=== PATIENT | female | born 1975 | race American Indian/Alaskan Native ===

== ENCOUNTER 2016-12-31 09:23 | Inpatient (IN) | payer MEDICAID ==
[2016-12-31 09:59] VITALS: BP 113/69
[2016-12-31 10:36] LABS: Hematocrit 27.1 % (30.3-42.9); Hemoglobin 8.4 gm/dl (10.1-14.3); Mean Corpuscular HGB Conc 31 % (30-34); Platelet Count 263 K/mm3 (140-440); Red Blood Count 4.38 M/mm3 (3.65-5.03); Red Cell Distribution Width 19.6 % (13.2-15.2)
[2016-12-31 10:38] LABS: Mean Corpuscular Hemoglobin 19 pg (28-32); Mean Corpuscular Volume 62 fl (79-97)
[2016-12-31 11:05] LABS: Anion Gap 15 mmol/L; BUN/Creatinine Ratio 12; Blood Urea Nitrogen 6 mg/dL (7-17); Calcium 9.1 mg/dL (8.4-10.2); Carbon Dioxide 26 mmol/L (22-30); Chloride 101.4 mmol/L (98-107); Glucose 84 mg/dL (65-100); Potassium 3.8 mmol/L (3.6-5.0); Sodium 139 mmol/L (137-145)
[2016-12-31 12:01] LABS: Anisocytosis 1+; Blastocytes % (Manual) 0 %; Hypochromasia 3+; Microcytosis 2+
[2016-12-31 12:02] LABS: Diff Status Complete; Large Platelets 1+; Platelet Estimate Cons; Poikilocytosis 1+; Target Cells 1+
[2016-12-31] MEDS ORDERED: TYLENOL PO ONE (12:53)
--- NOTE | 2016-12-31 13:59 | Emergency Department Report ---
ED Chest Pain HPI - General Chief Complaint: Chest Pain Stated Complaint: CHEST PAIN, HEAD HURTS Time Seen by Provider: 12/31/16 13:56 Source: patient Mode of arrival: Ambulatory Limitations: No Limitations - History of Present Illness Initial Comments: The patient states over the last 2-3 days she's had intermittent chest pain. She states that last for about 2 hours and it feels most like pressure. She states that she still has chest pain at this time which has persisted all morning. It is not pleuritic and does not radiate. It is mild in intensity right during my encounter. She denies any associated symptoms. She's had occasional nonproductive cough. Patient is somewhat poor and difficult historian. She states that she had an admission to a hospital in [facility]. She can't tell me when that might have been. She states that she was diagnosed with a "mild blockage". She cannot describe a cardiac catheterization but apparently was treated medically. She states she has a history of anemia but does not take iron replacement despite heavy periods. She states that her mother at 61 from a "massive heart attack". She is a former smoker. Complaint: chest pain -: days(s) Onset: during rest Pain Location: substernal Pain Radiation: none Severity: mild, moderate Severity scale (0 -10): 5 Quality: pressure Consistency: intermittent Improves With: nothing Worsens With: nothing re: denies: nausea, vomting, diaphoresis, dyspnea, sense of impending doom Other Symptoms: denies: cough, fever, syncope Treatments Prior to Arrival: none Aspirin use within the Past 7 Days: (0) No - Related Data Home Medications Medication Instructions Recorded Confirmed Last Taken No Known Home Medications [No 12/31/16 12/31/16 Unknown Reported Home Medications] Allergies Allergy/AdvReac Type Severity Reaction Status Date / Time No Known Allergies Allergy Unverified 12/31/16 09:53 Heart Score - HEART Score History: Slightly suspicious EKG: Significant ST-depression Age: < 45 Risk factors: 1-2 risk factors Troponin: < normal limit HEART Score: 3 ED Review of Systems ROS: Stated complaint: CHEST PAIN, HEAD HURTS Other details as noted in HPI Constitutional: denies: chills, fever Eyes: denies: eye pain, eye discharge, vision change ENT: denies: ear pain, throat pain Respiratory: denies: cough, shortness of breath, wheezing Cardiovascular: chest pain. denies: palpitations Endocrine: no symptoms reported Gastrointestinal: denies: abdominal pain, nausea, diarrhea Genitourinary: denies: urgency, dysuria, discharge Musculoskeletal: denies: back pain, joint swelling, arthralgia Skin: denies: rash, lesions Neurological: denies: headache, weakness, paresthesias Psychiatric: denies: anxiety, depression Hematological/Lymphatic: denies: easy bleeding, easy bruising ED Past Medical Hx - Past Medical History Previous Medical History?: Yes Additional medical history: vaginal delivery x 3. Anemia - Surgical History Past Surgical History?: Yes Hx Appendectomy: Yes Additional Surgical History: Tubaligation, x 2, Hx of tubal and loose right fallopian tube - Social History Smoking Status: Former Smoker Substance Use Type: Non Opiate Pain - Medications Home Medications: Home Medications Medication Instructions Recorded Confirmed Last Taken Type No Known Home Medications [No 12/31/16 12/31/16 Unknown History Reported Home Medications] ED Physical Exam - General Limitations: No Limitations General appearance: alert, in no apparent distress - Head Head exam: Present: atraumatic, normocephalic - Eye Eye exam: Present: normal appearance. Absent: scleral icterus - ENT ENT exam: Present: mucous membranes moist - Neck Neck exam: Present: normal inspection. Absent: tenderness, meningismus - Respiratory Respiratory exam: Present: normal lung sounds bilaterally. Absent: respiratory distress - Cardiovascular Cardiovascular Exam: Present: regular rate, normal rhythm. Absent: systolic murmur, diastolic murmur, rubs, gallop - GI/Abdominal GI/Abdominal exam: Present: soft, normal bowel sounds. Absent: distended, tenderness, guarding, rebound, rigid - Extremities Exam Extremities exam: Present: normal inspection, full ROM, normal capillary refill. Absent: tenderness, pedal edema, joint swelling, calf tenderness - Back Exam Back exam: Present: normal inspection - Neurological Exam Neurological exam: Present: alert, oriented X3, CN II-XII intact. Absent: motor sensory deficit - Psychiatric Psychiatric exam: Present: normal affect, anxious - Skin Skin exam: Present: warm, dry, intact, normal color. Absent: rash ED Course Vital Signs 12/31/16 09:54 Temperature 99.4 F Pulse Rate 81 Respiratory 18 Rate Blood Pressure 113/69 O2 Sat by Pulse 100 Oximetry - Reevaluation(s) Reevaluation #1: Patient referred to Dr. Decker for further care and evaluation. 12/31/16 14:10 ULISES score - Ulises Score Age > 65: (0) No Aspirin use within the Past 7 Days: (0) No 3 or more CAD Risk Factors: (0) No 2 or more Angina events in past 24 hrs: (0) No Known CAD with more than 50% Stenosis: (0) No Elevated Cardiac Markers: (0) No ST Deviation Greater than 0.5mm: (1) Yes ULISES Score: 1 ED Medical Decision Making - Lab Data Result diagrams: 12/31/16 10:10 12/31/16 10:10 Laboratory Results - last 24 hr 12/31/16 12/31/16 10:10 10:10 WBC 3.0 L RBC 4.38 Hgb 8.4 L Hct 27.1 L MCV 62 L MCH 19 L MCHC 31 RDW 19.6 H Plt Count 263 Add Manual Diff Complete Total Counted 100 Seg Neuts % (Manual) 57.0 Band Neutrophils % 0 Lymphocytes % (Manual) 31.0 Reactive Lymphs % (Man) 1.0 Monocytes % (Manual) 6.0 Eosinophils % (Manual) 2.0 Basophils % (Manual) 3.0 H Metamyelocytes % 0 Myelocytes % 0 Promyelocytes % 0 Blast Cells % 0 Nucleated RBC % Not Reportable Seg Neutrophils # Man 1.7 L Band Neutrophils # 0.0 Lymphocytes # (Manual) 0.9 L Abs React Lymphs (Man) 0.0 Monocytes # (Manual) 0.2 Eosinophils # (Manual) 0.1 Basophils # (Manual) 0.1 Metamyelocytes # 0.0 Myelocytes # 0.0 Promyelocytes # 0.0 Blast Cells # 0.0 WBC Morphology Not Reportable Hypersegmented Neuts Not Reportable Hyposegmented Neuts Not Reportable Hypogranular Neuts Not Reportable Smudge Cells Not Reportable Toxic Granulation Not Reportable Toxic Vacuolation Not Reportable Dohle Bodies Not Reportable Pelger-Huet Anomaly Not Reportable Marita Rods Not Reportable Platelet Estimate Cons Clumped Platelets Not Reportable Plt Clumps, EDTA Not Reportable Large Platelets 1+ Giant Platelets Not Reportable Platelet Satelliting Not Reportable Plt Morphology Comment Not Reportable RBC Morphology Not Reportable Dimorphic RBCs Not Reportable Polychromasia Not Reportable Hypochromasia 3+ Poikilocytosis 1+ Anisocytosis 1+ Microcytosis 2+ Macrocytosis Not Reportable Spherocytes Not Reportable Pappenheimer Bodies Not Reportable Sickle Cells Not Reportable Target Cells 1+ Tear Drop Cells Not Reportable Ovalocytes Not Reportable Helmet Cells Not Reportable Stiles[place] Bodies Not Reportable [place] Rings Not Reportable Danisha Cells Not Reportable Bite Cells Not Reportable Crenated Cell Not Reportable Elliptocytes Not Reportable Acanthocytes (Spur) Not Reportable Rouleaux Not Reportable Hemoglobin C Crystals Not Reportable Schistocytes Not Reportable Malaria parasites Not Reportable Tony Bodies Not Reportable Hem Pathologist Commnt No Sodium 139 Potassium 3.8 Chloride 101.4 Carbon Dioxide 26 Anion Gap 15 BUN 6 L Creatinine 0.5 L Estimated GFR > 60 BUN/Creatinine Ratio 12 Glucose 84 Calcium 9.1 Troponin T < 0.010 - EKG Data -: EKG Interpreted by Nd EKG shows normal: sinus rhythm, axis, intervals - EKG Data Interpretation: other (EKG reveals ST depression in the inferolateral leads of greater than or equal to 0.5 mm there is one PVC. There is an RSR in V2.) Critical care attestation.: If time is entered above; I have spent that time in minutes in the direct care of this critically ill patient, excluding procedure time. ED Disposition Clinical Impression: Chest pain Qualifiers: Chest pain type: unspecified Qualified Code(s): R07.9 - Chest pain, unspecified Anemia Qualifiers: Anemia type: unspecified type Qualified Code(s): D64.9 - Anemia, unspecified Disposition: DC-09 OP ADMIT IP TO THIS HOSP Is pt being admited?: Yes Does the pt Need Aspirin: Yes Condition: Stable Instructions: Chest Pain (ED) Referrals: PRIMARY CARE, [Primary Care Provider] - 3-5 Days Time of Disposition: 14:12
[2016-12-31] MEDS ORDERED: ASPIRIN PO ONE (14:12)
[2016-12-31 15:19] LABS: Alanine Aminotransferase 9 units/L (7-56); Albumin 4.5 g/dL (3.9-5); Albumin/Globulin Ratio 1.3 %; Alkaline Phosphatase 58 units/L (35-129); Total Protein 7.9 g/dL (6.3-8.2)
[2016-12-31 15:21] LABS: INR 1.07 (0.87-1.13)
[2016-12-31 15:22] LABS: Partial Thromboplastin Time 35.1 Sec. (24.2-36.6)
[2016-12-31 15:24] LABS: Bilirubin,Direct < 0.2 mg/dL (0-0.2); Bilirubin,Indirect 0.2 mg/dL
--- NOTE | 2016-12-31 15:37 | History and Physical Report ---
History of Present Illness Chief complaint: My chest hurts History of present illness: 41 YO Female with Anemia, CAD presents to ED for evaluation. Pt states that she has experienced pain in her chest for the past 2 days with worsening symptoms over the past 2 hours. Pt states that pain is 5/10, substernal, nonradiating, crushing in nature, intermittent, not worsened with exertion or relieved with rest. Pt acknowledges occasional nonproductive cough. Pt denies fever, chills, palpitations, NVD, Syncope. Pt states that she has a positive family history of CAD. Pt mother of [place] at the ago of 61. Pt was admitted to a hospital in [place], [place] and diagnosed with CAD. Past History Past Surgical History: appendectomy, , Other (tubal ligation) Social history: , lives with family. denies: smoking, alcohol abuse, prescription drug abuse Family history: CAD, hypertension Medications and Allergies Allergies Allergy/AdvReac Type Severity Reaction Status Date / Time No Known Allergies Allergy Unverified 12/31/16 09:53 Home Medications Medication Instructions Recorded Confirmed Last Taken Type No Known Home Medications [No 12/31/16 12/31/16 Unknown History Reported Home Medications] Review of Systems Constitutional: no weight loss, no weight gain, no fever, no chills Ears, nose, mouth and throat: no ear pain, no ear discharge, no tinnitis, no decreased hearing, no nose pain, no nasal congestion Breasts: no change in shape, no swelling, no mass Cardiovascular: chest pain, shortness of breath, no orthopnea, no palpitations, no rapid/irregular heart beat, no edema, no syncope Respiratory: no cough, no cough with sputum, no excessive sputum, no hemoptysis , no shortness of breath, no dyspnea on exertion Gastrointestinal: no abdominal pain, no nausea, no vomiting, no diarrhea, no constipation, no change in bowel habits, no hematemesis Genitourinary Female: no pelvic pain, no flank pain, no menorrhagia, no dysuria , no urinary frequency, no urgency, no stress incontinence, no post void dribbling, no incomplete emptying, no urge incontinence Rectal: no pain, no incontinence, no bleeding Musculoskeletal: no neck pain, no shooting arm pain, no arm numbness/tingling, no low back pain, no shooting leg pain Integumentary: no rash, no pruritis, no redness, no sores, no wounds, no jaundice, no boils Neurological: no paralysis, no weakness, no parathesias, no numbness, no tingling, no seizures, no syncope, no tremors Psychiatric: no memory loss, no change in sleep habits, no sleep disturbances, no insomnia, no hypersomnia, no change in appetite, no change in libido, no suicidal ideation Endocrine: no cold intolerance, no heat intolerance, no polyphagia, no excessive thirst, no polydipsia, no polyuria, no nocturia, no excessive sweating Hematologic/Lymphatic: no easy bruising, no easy bleeding Allergic/Immunologic: no urticaria, no allergic rhinitis, no wheezing Exam - Constitutional Vitals: Temp Pulse Resp BP Pulse Ox 99.4 F 81 18 113/69 100 12/31/16 09:54 12/31/16 09:54 12/31/16 09:54 12/31/16 09:54 12/31/16 09:54 General appearance: Present: mild distress - EENT Eyes: Present: PERRL ENT: hearing intact, clear oral mucosa - Neck Neck: Present: supple, normal ROM - Respiratory Respiratory effort: normal Respiratory: bilateral: CTA - Cardiovascular Heart Sounds: Present: S1 & S2. Absent: rub, click - Extremities Extremities: pulses symmetrical, No edema Peripheral Pulses: within normal limits - Abdominal General gastrointestinal: Present: soft, non-tender, non-distended, normal bowel sounds Female genitourinary: Present: normal - Integumentary Integumentary: Present: clear, warm, dry - Musculoskeletal Musculoskeletal: gait normal, strength equal bilaterally - Psychiatric Psychiatric: appropriate mood/affect, intact judgment & insight - Neurologic Neurologic: CNII-XII intact, moves all extremities Results - Labs CBC & Chem 7: 12/31/16 16:43 12/31/16 16:43 Labs: Abnormal lab results 12/31/16 12/31/16 Range/Units 10:10 10:10 WBC 3.0 L (4.5-11.0) K/mm3 Hgb 8.4 L (10.1-14.3) gm/dl Hct 27.1 L (30.3-42.9) % MCV 62 L (79-97) fl MCH 19 L (28-32) pg RDW 19.6 H (13.2-15.2) % Basophils % (Manual) 3.0 H (0.0-1.8) % Seg Neutrophils # Man 1.7 L (1.8-7.7) K/mm3 Lymphocytes # (Manual) 0.9 L (1.2-5.4) K/mm3 BUN 6 L (7-17) mg/dL Creatinine 0.5 L (0.7-1.2) mg/dL Assessment and Plan - Patient Problems (1) ACS (acute coronary syndrome) Current Visit: Yes Status: Suspected Plan to address problem: Chest Pain Protocol: Serial cardiac enzymes, ekg, telemetry, echo, stress test, cardiology consult, morphine, oxygen, nitrogen tabs if presistent chest pain, aspirin. (2) CAD (coronary artery disease) Current Visit: Yes Status: Acute Qualifiers: Coronary Disease-Associated Artery/Lesion type: [place] artery [place] vs. transplanted heart: [place] heart Associated angina: with stable angina Qualified Code(s): I25.118 - Atherosclerotic heart disease of [place] coronary artery with other forms of angina pectoris Plan to address problem: Lipid Panel, low cholesterol diet, supportive care. (3) Anemia Current Visit: Yes Status: Acute Qualifiers: Anemia type: A Iron deficiency anemia type: I Vitamin B12 deficiency anemia type: V Folate deficiency anemia type: F Bone marrow failure anemia type: B Hemolytic anemia type: H Other causes of anemia: O Chronic kidney disease stage: C Plan to address problem: Chronic, supportive care. (4) DVT prophylaxis Current Visit: Yes Status: Acute
[2016-12-31] MEDS ORDERED: PROVENTIL IH PRN (15:38)
[2016-12-31] MEDS ORDERED: MILK OF MAGNESIA PO PRN (15:38)
[2016-12-31] MEDS ORDERED: DULCOLAX PR PRN (15:38)
[2016-12-31] MEDS ORDERED: SODIUM CHLORIDE FLUSH SYRINGE 10 ML IV PRN (15:38)
[2016-12-31] MEDS ORDERED: ZOFRAN IV PRN (15:38)
[2016-12-31] MEDS ORDERED: TYLENOL PO PRN (15:38)
[2016-12-31 17:00] LABS: Hematocrit 26.8 % (30.3-42.9); Hemoglobin 7.9 gm/dl (10.1-14.3); Mean Corpuscular HGB Conc 30 % (30-34); Platelet Count 262 K/mm3 (140-440); Red Blood Count 4.28 M/mm3 (3.65-5.03); Red Cell Distribution Width 19.6 % (13.2-15.2); White Blood Count 3.8 K/mm3 (4.5-11.0)
[2016-12-31 17:01] LABS: Mean Corpuscular Hemoglobin 19 pg (28-32); Mean Corpuscular Volume 63 fl (79-97)
[2016-12-31 17:02] LABS: Basophils % (Auto) 1.7 % (0.0-1.8); Eosinophils % (Auto) 1.7 % (0.0-4.3)
[2016-12-31 17:14] LABS: Anion Gap 16 mmol/L; BUN/Creatinine Ratio 12; Blood Urea Nitrogen 6 mg/dL (7-17); Calcium 8.8 mg/dL (8.4-10.2); Carbon Dioxide 27 mmol/L (22-30); Glucose 84 mg/dL (65-100); Potassium 3.8 mmol/L (3.6-5.0); Sodium 141 mmol/L (137-145)
--- NOTE | 2017-01-01 07:57 | XRay Report ---
AP CHEST: HISTORY: chest pain No comparison. There are subtle areas of infiltration in the lower lung zones. This could represent early infiltrates or mild congestive changes. No consolidation, large pleural effusion or pneumothorax. Heart size and pulmonary vascularity are within normal limits. The bony thorax is intact. IMPRESSION: Subtle bilateral lower lung densities. See above and correlate with the patient.
== END 2016-12-31 21:45 | disposition left against medical advice (07) | DRG 311 ==
LOC: ED 09:23 → 4A 15:38
PROVIDERS: ADMIT Internal Medicine; ATTEND Internal Medicine
DX: I24.9 Acute ischemic heart disease, unspecified (principal); I25.10 Atherosclerotic heart disease of native coronary artery without angina pectoris; D64.9 Anemia, unspecified; Z90.49 Acquired absence of other specified parts of digestive tract; Z87.891 Personal history of nicotine dependence; Z98.51 Tubal ligation status; Z82.49 Family history of ischemic heart disease and other diseases of the circulatory system; Z53.21 Procedure and treatment not carried out due to patient leaving prior to being seen by health care provider
CPT/HCPCS: 36415; 71010; 80048; 80074; 84484; 84703; 85007; 85025; 85379; 85610; 85730; 93005; 93010

== ENCOUNTER 2017-06-25 14:03 | Emergency (ER) | payer MEDICAID ==
[2017-06-25] MEDS ORDERED: ASPIRIN PO ONE (14:20)
[2017-06-25 15:19] LABS: Hematocrit 25.5 % (30.3-42.9); Hemoglobin 7.5 gm/dl (10.1-14.3); Mean Corpuscular HGB Conc 30 % (30-34); Platelet Count 245 K/mm3 (140-440); Red Blood Count 4.08 M/mm3 (3.65-5.03)
[2017-06-25 15:20] LABS: Mean Corpuscular Hemoglobin 19 pg (28-32); Mean Corpuscular Volume 62 fl (79-97); Red Cell Distribution Width 20.2 % (13.2-15.2)
[2017-06-25 15:32] LABS: BUN/Creatinine Ratio 12; Blood Urea Nitrogen 6 mg/dL (7-17); Hemolysis Index 0
[2017-06-25 16:09] LABS: Anisocytosis 1+; Basophils % (Manual) 0 % (0.0-1.8); Hypochromasia 3+; Platelet Estimate Cons; Total Cells Counted 100
[2017-06-25] MEDS ORDERED: NITRO-BID 2% TP ONE (16:10)
--- NOTE | 2017-06-25 16:16 | Emergency Department Report ---
HPI - General Chief Complaint: Chest Pain Time Seen by Provider: 06/25/17 16:02 - HPI HPI: Room 3 The patient is a 41-year-old female presenting with chief complaint of chest pain. The patient states since yesterday she is an intermittent right-sided chest pain described as pressure. Patient denies shortness of breath, nausea/ vomiting or diaphoresis. Patient states her last stress test occurred over 5 years ago. The patient states she's never had a cardiac catheterization Location: Chest Duration: Intermittent since yesterday Quality: Pressure Severity: Currently 0/10 Modifying factors: [see above] Context: [see above] Mode of transportation: [not driving] ED Past Medical Hx - Past Medical History Previous Medical History?: Yes Additional medical history: vaginal delivery x 3. Anemia, CAD - Surgical History Past Surgical History?: Yes Hx Appendectomy: Yes Additional Surgical History: Tubaligation, x 2, Hx of tubal and right salpingectomy - Family History Family history: no significant - Social History Smoking Status: Former Smoker Substance Use Type: None (denies illicit drug use) - Medications Home Medications: Home Medications Medication Instructions Recorded Confirmed Last Taken Type No Known Home Medications [No 12/31/16 12/31/16 Unknown History Reported Home Medications] ED Review of Systems ROS: Stated complaint: chest pain Other details as noted in HPI Constitutional: denies: diaphoresis Respiratory: denies: shortness of breath Cardiovascular: chest pain Gastrointestinal: denies: nausea, vomiting Physical Exam - Physical Exam Vital Signs: Vital Signs 06/25/17 14:16 Temperature 98.6 F Pulse Rate 76 Respiratory 18 Rate Blood Pressure 115/80 O2 Sat by Pulse 100 Oximetry Physical Exam: GENERAL: The patient is well-developed well-nourished female lying on stretcher not appearing to be in acute distress. [] HEENT: Normocephalic. Atraumatic. Extraocular motions are intact. Patient has moist mucous membranes. NECK: Supple. No meningitic signs are noted. There is no adenopathy noted. CHEST/LUNGS: Clear to auscultation. There is no respiratory distress noted. HEART/CARDIOVASCULAR: Regular. There is no tachycardia. There is no gallop rub or murmur. ABDOMEN: Abdomen is soft, nontender. Patient has normal bowel sounds. There is no abdominal distention. SKIN: There is no rash. There is no edema. There is no diaphoresis. NEURO: The patient is awake, alert, and oriented. The patient is cooperative. The patient has normal speech MUSCULOSKELETAL: There is no evidence of acute injury. ED Course Vital Signs 06/25/17 14:16 Temperature 98.6 F Pulse Rate 76 Respiratory 18 Rate Blood Pressure 115/80 O2 Sat by Pulse 100 Oximetry ED Medical Decision Making - Lab Data Result diagrams: 06/25/17 14:52 06/25/17 14:52 Laboratory Tests 06/25/17 06/25/17 14:52 14:52 WBC 2.7 L RBC 4.08 Hgb 7.5 L Hct 25.5 L MCV 62 L MCH 19 L MCHC 30 RDW 20.2 H Plt Count 245 Add Manual Diff Complete Total Counted 100 Seg Neuts % (Manual) 62.0 Band Neutrophils % 0 Lymphocytes % (Manual) 30.0 Reactive Lymphs % (Man) 1.0 Monocytes % (Manual) 4.0 Eosinophils % (Manual) 3.0 Basophils % (Manual) 0 Metamyelocytes % 0 Myelocytes % 0 Promyelocytes % 0 Blast Cells % 0 Nucleated RBC % Not Reportable Seg Neutrophils # Man 1.7 L Band Neutrophils # 0.0 Lymphocytes # (Manual) 0.8 L Abs React Lymphs (Man) 0.0 Monocytes # (Manual) 0.1 Eosinophils # (Manual) 0.1 Basophils # (Manual) 0.0 Metamyelocytes # 0.0 Myelocytes # 0.0 Promyelocytes # 0.0 Blast Cells # 0.0 WBC Morphology Not Reportable Hypersegmented Neuts Not Reportable Hyposegmented Neuts Not Reportable Hypogranular Neuts Not Reportable Smudge Cells Not Reportable Toxic Granulation Not Reportable Toxic Vacuolation Not Reportable Dohle Bodies Not Reportable Pelger-Huet Anomaly Not Reportable Marita Rods Not Reportable Platelet Estimate Cons Clumped Platelets Not Reportable Plt Clumps, EDTA Not Reportable Large Platelets Not Reportable Giant Platelets Not Reportable Platelet Satelliting Not Reportable Plt Morphology Comment Not Reportable RBC Morphology Not Reportable Dimorphic RBCs Not Reportable Polychromasia Not Reportable Hypochromasia 3+ Poikilocytosis Not Reportable Anisocytosis 1+ Microcytosis 2+ Macrocytosis Not Reportable Spherocytes Not Reportable Pappenheimer Bodies Not Reportable Sickle Cells Not Reportable Target Cells Not Reportable Tear Drop Cells Not Reportable Ovalocytes Not Reportable Helmet Cells Not Reportable Stiles[place] Bodies Not Reportable [place] Rings Not Reportable Danisha Cells Not Reportable Bite Cells Not Reportable Crenated Cell Not Reportable Elliptocytes Not Reportable Acanthocytes (Spur) Not Reportable Rouleaux Not Reportable Hemoglobin C Crystals Not Reportable Schistocytes Not Reportable Malaria parasites Not Reportable Tony Bodies Not Reportable Hem Pathologist Commnt No Sodium 139 Potassium 3.8 Chloride 99.4 Carbon Dioxide 28 Anion Gap 15 BUN 6 L Creatinine 0.5 L Estimated GFR > 60 BUN/Creatinine Ratio 12 Glucose 100 Calcium 9.0 Troponin T < 0.010 - EKG Data -: EKG Interpreted by Me EKG shows normal: sinus rhythm Rate: normal - EKG Data When compared to previous EKG there are: no significant change Interpretation: unchanged when compared t (12/31/2016) - Radiology Data Radiology results: image reviewed (chest x-ray) interpreted by me: Chest x-ray-no definite focal infiltrates, no pneumothorax - Differential Diagnosis ACS, GERD, pericarditis Critical care attestation.: If time is entered above; I have spent that time in minutes in the direct care of this critically ill patient, excluding procedure time. ED Disposition Clinical Impression: Chest pain, Anemia, Leukopenia Disposition: OP ADMIT IP TO THIS HOSP Is pt being admited?: Yes Does the pt Need Aspirin: Yes Condition: Fair Instructions: Chest Pain (ED) Referrals: PRIMARY CARE, [Primary Care Provider] - 3-5 Days Time of Disposition: 17:08 (hospitalist paged (Dr. Decker))
[2017-06-25] MEDS ORDERED: ASPIRIN ONE (16:37)
--- NOTE | 2017-06-25 17:49 | XRay Report ---
FINAL REPORT EXAM: XR CHEST 1V AP HISTORY: chest pain TECHNIQUE: Frontal chest radiograph. PRIORS: None. FINDINGS: The cardiomediastinal silhouette is normal. No focal consolidation. No pleural effusion. No pneumothorax. No acute osseous abnormality. IMPRESSION: No acute cardiopulmonary process.
[2017-06-25 22:07] VITALS: BP 123/85
--- NOTE | 2017-06-25 22:30 | Event Note ---
Date: 06/25/17 Pateint c/o Rt chest pain Patient has been mowing grass last 2 days and attributes the pain to manual work. o/e Rt Chest wall tenderness present Dx Costochondritis Meloxicam 7.5 mg po bid x8 days
== END 2017-06-25 23:15 | disposition admitted as inpatient to this hospital (09) ==
LOC: ED 14:03
DX: R07.9 Chest pain, unspecified (principal); D72.819 Decreased white blood cell count, unspecified; D64.9 Anemia, unspecified
CPT/HCPCS: 36415; 71045; 80048; 84484; 85007; 85025; 93005; 93010

== ENCOUNTER 2017-09-09 20:42 | Emergency (ER) | payer MEDICAID ==
[2017-09-09 20:54] VITALS: BP 110/70
[2017-09-09] MEDS ORDERED: TYLENOL PO ONE (20:57)
--- NOTE | 2017-09-09 21:30 | XRay Report ---
FINAL REPORT PROCEDURE: XR ANKLE 2V RT TECHNIQUE: RIGHT ankle radiographs, AP and lateral views. HISTORY: right ankle pain COMPARISON: No prior studies are available for comparison. FINDINGS: Fracture (s) and/or Dislocation(s): None. Alignment: Normal. Joint space(s): Normal. Soft tissues: Normal. Bone mineralization: Mild degree osteophyte formation is noted involving tibiotalar joint. Foreign bodies: Normal. Calcaneal spurring: Normal. IMPRESSION: No acute fracture Mild degree osteoarthritis.
--- NOTE | 2017-09-09 21:37 | XRay Report ---
FINAL REPORT PROCEDURE: XR FOOT 2V RT TECHNIQUE: RIGHT foot radiographs, AP and lateral views. HISTORY: Right lateral foot pain COMPARISON: No prior studies are available for comparison. FINDINGS: Fracture (s) and/or Dislocation(s): An irregular transverse lucency is noted involving the proximal diaphysis of 5th proximal phalanx suspicious for an acute fracture. Alignment: Normal. Joint space(s): Normal. Soft tissues: Normal. Bone mineralization: Normal. Foreign bodies: None. Calcaneal spurring: None. IMPRESSION: An acute fracture of the 5th proximal phalanx is suspected. Oblique view is recommended.
--- NOTE | 2017-09-09 22:04 | Emergency Department Report ---
ED Lower Extremity HPI - General Chief Complaint: Extremity Injury, Lower Stated Complaint: SLIP & FELL HURT R. LEG Time Seen by Provider: 09/09/17 21:01 Source: patient Mode of arrival: Ambulatory Limitations: No Limitations - History of Present Illness Initial Comments: This is a 41-year-old female nontoxic, well nourished in appearance, no acute signs of distress presents to the ED with c/o of right ankle, foot, and hip pain. Patient stated that she was walking down the stairs and about 5 stairs slipped and fell on her foot landed on her right hip area. Patient denies any other trauma. Patient denies any numbness, tingling, fever, chills, nausea, vomiting, chest pain, shortness of breath, headache, stiff neck. Patient denies any joint swelling or joint redness. Patient denies decreased range of motion. Patient stated has decreased gait due to pain. Patient denies any allergies or significant past medical history. MD Complaint: hip injury, ankle injury, foot injury -: This evening Injury: Hip: Right, Ankle: Right, Foot: Right Place: home Severity: mild Severity scale (0 -10): 8 Improves With: immobilization Worsens With: weight bearing, movement, palpation Context: fall, direct blow Associated Symptoms: swelling, able to partially bear weight, ambulatory. denies: snap/pop sensation, numbness, tingling, unable to bear weight - Related Data Previous Rx's Medication Instructions Recorded Last Taken Type Meloxicam 7.5 mg PO BID #16 tablet 06/25/17 Unknown Rx Acetaminophen/Codeine [Tylenol 1 tab PO Q6H PRN #12 tab 09/09/17 Unknown Rx /Codeine # 3 tab] Ibuprofen [Motrin] 600 mg PO Q8H PRN #30 tablet 09/09/17 Unknown Rx Allergies Allergy/AdvReac Type Severity Reaction Status Date / Time No Known Allergies Allergy Unverified 12/31/16 09:53 ED Review of Systems ROS: Stated complaint: SLIP & FELL HURT R. LEG Other details as noted in HPI Constitutional: denies: chills, fever Eyes: denies: eye pain, eye discharge, vision change ENT: denies: ear pain, throat pain Respiratory: denies: cough, shortness of breath, wheezing Cardiovascular: denies: chest pain, palpitations Endocrine: no symptoms reported Gastrointestinal: denies: abdominal pain, nausea, diarrhea Genitourinary: denies: urgency, dysuria, discharge Musculoskeletal: arthralgia. denies: back pain, joint swelling Skin: denies: rash, lesions Neurological: denies: headache, weakness, paresthesias Psychiatric: denies: anxiety, depression Hematological/Lymphatic: denies: easy bleeding, easy bruising ED Past Medical Hx - Past Medical History Additional medical history: vaginal delivery x 3. Anemia, CAD - Surgical History Hx Appendectomy: Yes Additional Surgical History: Tubaligation, x 2, Hx of tubal and right salpingectomy - Social History Smoking Status: Never Smoker Substance Use Type: None - Medications Home Medications: Home Medications Medication Instructions Recorded Confirmed Last Taken Type Meloxicam 7.5 mg PO BID #16 tablet 06/25/17 Unknown Rx Acetaminophen/Codeine [Tylenol 1 tab PO Q6H PRN #12 tab 09/09/17 Unknown Rx /Codeine # 3 tab] Ibuprofen [Motrin] 600 mg PO Q8H PRN #30 tablet 09/09/17 Unknown Rx ED Physical Exam - General Limitations: No Limitations General appearance: alert, in no apparent distress - Head Head exam: Present: atraumatic, normocephalic - Eye Eye exam: Present: normal appearance Pupils: Present: normal accommodation - ENT ENT exam: Present: normal exam, mucous membranes moist - Neck Neck exam: Present: normal inspection, full ROM. Absent: tenderness, meningismus, lymphadenopathy - Respiratory Respiratory exam: Present: normal lung sounds bilaterally. Absent: respiratory distress, wheezes, rales, rhonchi, stridor, chest wall tenderness, accessory muscle use, decreased breath sounds, prolonged expiratory - Cardiovascular Cardiovascular Exam: Present: regular rate, normal rhythm, normal heart sounds. Absent: irregular rhythm, systolic murmur, diastolic murmur, rubs, gallop - GI/Abdominal GI/Abdominal exam: Present: soft, normal bowel sounds - Extremities Exam Extremities exam: Present: normal inspection, full ROM, tenderness, normal capillary refill. Absent: pedal edema, joint swelling, calf tenderness - Expanded Lower Extremity Exam Right Hip exam: Present: normal inspection, full ROM, tenderness, external rotation, internal rotation, pelvic stability. Absent: swelling, abrasion, laceration, ecchymosis, deformity, crepidus, dislocation, erythema, shortening Upper Leg exam: Present: normal inspection, full ROM. Absent: tenderness, swelling, abrasion, laceration, ecchymosis, deformity, crepidus, dislocation, erythema Knee exam: Present: normal inspection, full ROM, full knee extension. Absent: tenderness, swelling, abrasion, laceration, ecchymosis, deformity, crepidus, dislocation, erythema, effusion, pain w/ pronation/supination, posterior draw sign, pain/laxity with valgus, pain/laxity with varus Lower Leg exam: Present: normal inspection, full ROM. Absent: tenderness, swelling, abrasion, laceration, ecchymosis, deformity, crepidus, dislocation, erythema, palpable cord, Bella's sign Ankle exam: Present: normal inspection, full ROM, tenderness, swelling. Absent : abrasion, laceration, ecchymosis, deformity, crepidus, dislocation, erythema, anterior draw sign Foot/Toe exam: Present: normal inspection, full ROM, tenderness, swelling. Absent: abrasion, laceration, ecchymosis, deformity, crepidus, dislocation, erythema, amputation, puncture wound, foreign body, calcaneal tenderness, tenderness at base of 5th metatarsal, nail avulsion, subungual hematoma Neuro vascular tendon exam: Present: no vascular compromise. Absent: pulse deficit, abnormal cap refill, motor deficit, sensory deficit, tendon deficit, extremity cold to touch, pallor, abnormal 2-point discrimination, decreased fine /light touch, foot drop, peroneal nerve deficit, significant pain with passive ROM of distal joint Gait: Positive: observed and limited by pain - Back Exam Back exam: Present: normal inspection, full ROM. Absent: tenderness, CVA tenderness (R), CVA tenderness (L), muscle spasm, paraspinal tenderness, vertebral tenderness, rash noted - Neurological Exam Neurological exam: Present: alert, oriented X3, normal gait - Psychiatric Psychiatric exam: Present: normal affect, normal mood - Skin Skin exam: Present: warm, dry, intact, normal color. Absent: rash ED Course Vital Signs 09/09/17 20:49 Temperature 98.4 F Pulse Rate 97 H Respiratory 16 Rate Blood Pressure 110/70 O2 Sat by Pulse 99 Oximetry - Reevaluation(s) Reevaluation #1: 09/09/17 22:05 Patient is speaking in full sentences with no signs of distress noted. ED Lower Extremity MDM - Medical Decision Making This is a 41-year-old female that presents with right fifth metatarsal fracture. Patient is stable and was examined by me. I referred patient to an orthopedic doctor for further evaluation for possible MRI. X-ray has been obtained and dictated by the radiologist. Patient is notified of the x-ray report with noted by the patient. No joint swelling. No ecchymosis. no joint redness or swelling. Not warm to touch. No signs of cellulites present. Patient received a posterior ankle splint with crutches and was educated by RN how to use crutches. Post splint assessment: neurovasular intact; normal cap refill <2 second; normal sensation; denies decreaed sensation; normal ROM of digits. Patient was instructed to RICE therapy. Patient is discharged with Motrin and Tylenol with Codeine and was instructed not to operate any machinery while taking Tylenol with codeine as this may cause drowsiness. At time of discharge, the patient does not seem toxic or ill in appearance. No acute signs of distress noted. Patient agrees to discharge treatment plan of care. No further questions noted by the patient. Critical care attestation.: If time is entered above; I have spent that time in minutes in the direct care of this critically ill patient, excluding procedure time. ED Disposition Clinical Impression: Fall Qualifiers: Encounter type: initial encounter Qualified Code(s): W19.XXXA - Unspecified fall, initial encounter Fracture of 5th metatarsal Qualifiers: Encounter type: initial encounter Fracture type: closed Fracture alignment: nondisplaced Laterality: right Qualified Code(s): S92.354A - Nondisplaced fracture of fifth metatarsal bone, right foot, initial encounter for closed fracture Disposition: DC-01 TO HOME OR SELFCARE Is pt being admited?: No Does the pt Need Aspirin: No Condition: Stable Instructions: Acetaminophen/Codeine (By mouth), Crutch Instructions (ED), Toe Fracture (ED), Splint Care (ED), RICE Therapy (ED) Additional Instructions: Follow-up with a orthopedic doctor in 3-5 days or if symptoms worsen and continue return to emergency room as soon as possible. Prescriptions: Acetaminophen/Codeine [Tylenol /Codeine # 3 tab] 1 tab PO Q6H PRN #12 tab PRN Reason: Pain , Severe (7-10) Ibuprofen [Motrin] 600 mg PO Q8H PRN #30 tablet PRN Reason: Pain Referrals: PRIMARY CAREMD [Primary Care Provider] - 3-5 Days HECTOR ANGEL MD [Staff Physician] - 3-5 Days [facility] [Outside] - 3-5 Days Forms: Work/School Release Form(ED)
--- NOTE | 2017-09-09 22:29 | XRay Report ---
FINAL REPORT PROCEDURE: XR HIP 2-3V RT TECHNIQUE: RIGHT hip radiographs, 2 views each, including AP view of the pelvis. HISTORY: fall right hip pain COMPARISON: No prior studies are available for comparison. FINDINGS: Fracture (s) and/or Dislocation(s): None . Joint space(s): Normal. Soft tissues: Normal. Bone mineralization: Normal. Foreign bodies: None. IMPRESSION: Normal Examination.
== END 2017-09-09 23:29 | disposition home or self-care (01) ==
LOC: ED 20:42
DX: S92.354A Nondisplaced fracture of fifth metatarsal bone, right foot, initial encounter for closed fracture (principal); Z90.49 Acquired absence of other specified parts of digestive tract; Z98.51 Tubal ligation status; Z90.79 Acquired absence of other genital organ(s); W17.89XA Other fall from one level to another, initial encounter; Y93.01 Activity, walking, marching and hiking; Y99.8 Other external cause status; Y92.89 Other specified places as the place of occurrence of the external cause

== ENCOUNTER 2020-04-27 18:46 | Emergency (ER) | payer MEDICAID ==
--- NOTE | 2020-04-27 20:15 | Emergency Department Report ---
ED Chest Pain HPI - General Stated Complaint: CHEST PAIN Time Seen by Provider: 04/27/20 19:59 - History of Present Illness Initial Comments: This is a 44-year-old female presents to the emergency department with a complaint of some midsternal to right-sided chest pain that has been going on for the past 2 to 3 days. Currently it is 5 out of 10 in intensity and sharp in nature. She says that it worsens when she is laying on that right side. Using a warm compress/towel to the chest helps with the pain. She denies any fever, nausea, vomiting, back pain, diaphoresis, cough, shortness of breath. She is a former smoker. She tried some BC powder for her symptoms yesterday without much relief. No recent travel or sick contacts at home. No early [place] or cardiac events in her nuclear family. No recent travel or sick contacts at home. - Related Data Previous Rx's Medication Instructions Recorded Last Taken Type Meloxicam 7.5 mg PO BID #16 tablet 06/25/17 Unknown Rx Acetaminophen/Codeine [Tylenol 1 tab PO Q6H PRN #12 tab 09/09/17 Unknown Rx /Codeine # 3 tab] Ibuprofen [Motrin] 600 mg PO Q8H PRN #30 tablet 09/09/17 Unknown Rx Allergies Allergy/AdvReac Type Severity Reaction Status Date / Time No Known Allergies Allergy Unverified 12/31/16 09:53 Heart Score - HEART Score History: Slightly suspicious EKG: Non-specific Age: < 45 Risk factors: 1-2 risk factors Troponin: < normal limit HEART Score: 2 - Critical Actions Critical Actions: 0-3 pts:0.9-1.7%risk of adverse cardiac event.Candidate for discharge ED Review of Systems ROS: Stated complaint: CHEST PAIN Other details as noted in HPI Comment: All other systems reviewed and negative Constitutional: denies: chills, fever Eyes: denies: eye pain, vision change ENT: denies: ear pain, throat pain Respiratory: denies: cough, shortness of breath Cardiovascular: chest pain. denies: edema Gastrointestinal: denies: abdominal pain, vomiting Genitourinary: denies: dysuria, discharge Musculoskeletal: denies: back pain, arthralgia Skin: denies: rash, lesions Neurological: denies: headache, weakness ED Past Medical Hx - Past Medical History Additional medical history: vaginal delivery x 3. Anemia, CAD - Surgical History Hx Appendectomy: Yes Additional Surgical History: Tubaligation, x 2, Hx of tubal and right salpingectomy - Social History Smoking Status: Never Smoker Substance Use Type: None - Medications Home Medications: Home Medications Medication Instructions Recorded Confirmed Last Taken Type Meloxicam 7.5 mg PO BID #16 tablet 06/25/17 Unknown Rx Acetaminophen/Codeine [Tylenol 1 tab PO Q6H PRN #12 tab 09/09/17 Unknown Rx /Codeine # 3 tab] Ibuprofen [Motrin] 600 mg PO Q8H PRN #30 tablet 09/09/17 Unknown Rx ED Physical Exam - Other Other exam information: GENERAL: The patient is well-developed well-nourished. HENT: Normocephalic. Atraumatic. Patient has moist mucous membranes. EYES: Extraocular motions are intact. NECK: Supple. Trachea is midline. CHEST/LUNGS: Clear to auscultation. There is no respiratory distress noted. There is some reproducible tenderness to palpation to the midsternal to right- sided chest wall. No crepitus or deformity. HEART/CARDIOVASCULAR: Regular. There is no tachycardia. There is no murmur. ABDOMEN: Abdomen is soft, nontender. Patient has normal bowel sounds. SKIN: Skin is warm and dry. NEURO: The patient is awake, alert, and oriented. The patient is cooperative. The patient has no focal neurologic deficits. Normal speech. MUSCULOSKELETAL: There is no tenderness or deformity. There is no limitation range of motion. ED Course Vital Signs 04/27/20 04/27/20 04/27/20 20:01 20:15 20:31 Temperature Pulse Rate 78 73 80 Respiratory 17 20 14 Rate Blood Pressure 123/84 133/85 133/85 Blood Pressure [Left] O2 Sat by Pulse 100 100 100 Oximetry 04/27/20 04/27/20 04/27/20 20:35 20:45 21:01 Temperature 97.6 F Pulse Rate 79 77 Respiratory 18 16 Rate Blood Pressure 121/82 121/82 Blood Pressure 133/85 [Left] O2 Sat by Pulse 100 100 100 Oximetry 04/27/20 04/27/20 04/27/20 21:15 21:31 21:45 Temperature Pulse Rate 79 70 Respiratory 18 18 Rate Blood Pressure 130/86 130/86 123/83 Blood Pressure [Left] O2 Sat by Pulse 100 100 100 Oximetry 04/27/20 04/27/20 04/27/20 22:01 22:15 22:31 Temperature Pulse Rate 72 73 80 Respiratory 17 17 19 Rate Blood Pressure 123/83 134/84 134/84 Blood Pressure [Left] O2 Sat by Pulse 100 100 100 Oximetry 04/27/20 04/27/20 04/27/20 22:33 23:01 23:03 Temperature Pulse Rate 71 Respiratory 18 15 18 Rate Blood Pressure 146/99 Blood Pressure [Left] O2 Sat by Pulse 100 Oximetry 04/27/20 23:15 Temperature Pulse Rate 68 Respiratory 14 Rate Blood Pressure 121/81 Blood Pressure [Left] O2 Sat by Pulse 100 Oximetry ULISES score - Ulises Score Age > 65: (0) No Aspirin use within the Past 7 Days: (0) No 3 or more CAD Risk Factors: (0) No 2 or more Angina events in past 24 hrs: (1) Yes Known CAD with more than 50% Stenosis: (0) No Elevated Cardiac Markers: (0) No ST Deviation Greater than 0.5mm: (1) Yes ULISES Score: 2 ED Medical Decision Making - Lab Data Result diagrams: 04/27/20 19:48 04/27/20 19:48 Lab Results 04/27/20 04/27/20 04/27/20 Range/Units 19:48 19:48 22:31 WBC 6.1 (4.5-11.0) K/mm3 RBC 4.07 (3.65-5.03) M/mm3 Hgb 8.0 L (10.1-14.3) gm/dl Hct 26.4 L (30.3-42.9) % MCV 65 L (79-97) fl MCH 20 L (28-32) pg MCHC 30 (30-34) % RDW 20.0 H (13.2-15.2) % Plt Count 321 (140-440) K/mm3 Add Manual Diff Complete Total Counted 100 Seg Neuts % (Manual) 75.0 H (40.0-70.0) % Lymphocytes % (Manual) 20.0 (13.4-35.0) % Monocytes % (Manual) 1.0 (0.0-7.3) % Eosinophils % (Manual) 3.0 (0.0-4.3) % Basophils % (Manual) 1.0 (0.0-1.8) % Nucleated RBC % Not Reportable Seg Neutrophils # Man 4.6 (1.8-7.7) K/mm3 Band Neutrophils # 0.0 K/mm3 Lymphocytes # (Manual) 1.2 (1.2-5.4) K/mm3 Abs React Lymphs (Man) 0.0 K/mm3 Monocytes # (Manual) 0.1 (0.0-0.8) K/mm3 Eosinophils # (Manual) 0.2 (0.0-0.4) K/mm3 Basophils # (Manual) 0.1 (0.0-0.1) K/mm3 Metamyelocytes # 0.0 K/mm3 Myelocytes # 0.0 K/mm3 Promyelocytes # 0.0 K/mm3 Blast Cells # 0.0 K/mm3 WBC Morphology Not Reportable Hypersegmented Neuts Not Reportable Hyposegmented Neuts Not Reportable Hypogranular Neuts Not Reportable Smudge Cells Not Reportable Toxic Granulation Not Reportable Toxic Vacuolation Not Reportable Dohle Bodies Not Reportable Pelger-Huet Anomaly Not Reportable Marita Rods Not Reportable Platelet Estimate Consistent w auto Clumped Platelets Not Reportable Plt Clumps, EDTA Not Reportable Large Platelets Not Reportable Giant Platelets Not Reportable Platelet Satelliting Not Reportable Plt Morphology Comment Not Reportable RBC Morphology Not Reportable Dimorphic RBCs Not Reportable Polychromasia Not Reportable Hypochromasia 2+ Poikilocytosis Not Reportable Anisocytosis Few Microcytosis 1+ Macrocytosis Not Reportable Spherocytes Not Reportable Pappenheimer Bodies Not Reportable Sickle Cells Not Reportable Target Cells Not Reportable Tear Drop Cells Not Reportable Ovalocytes Rare Helmet Cells Not Reportable Stiles-Huxley Bodies Not Reportable Vickery Rings Not Reportable Yale Cells Not Reportable Bite Cells Not Reportable Crenated Cell Not Reportable Elliptocytes Not Reportable Acanthocytes (Spur) Not Reportable Rouleaux Not Reportable Hemoglobin C Crystals Not Reportable Schistocytes Not Reportable Malaria parasites Not Reportable Tony Bodies Not Reportable Hem Pathologist Commnt No Sodium 137 (137-145) mmol/L Potassium 3.2 L (3.6-5.0) mmol/L Chloride 100.6 (98-107) mmol/L Carbon Dioxide 27 (22-30) mmol/L Anion Gap 13 mmol/L BUN 6 L (7-17) mg/dL Creatinine 0.6 (0.6-1.2) mg/dL Estimated GFR > 60 ml/min BUN/Creatinine Ratio 10 % Glucose 99 (65-100) mg/dL Calcium 9.1 (8.4-10.2) mg/dL Total Bilirubin 0.40 (0.1-1.2) mg/dL AST 18 (5-40) units/L ALT 10 (7-56) units/L Alkaline Phosphatase 63 (35-129) units/L Troponin T < 0.010 < 0.010 (0.00-0.029) ng/mL Total Protein 7.5 (6.3-8.2) g/dL Albumin 4.2 (3.9-5) g/dL Albumin/Globulin Ratio 1.3 % - EKG Data -: EKG Interpreted by Me EKG shows normal: sinus rhythm, axis, intervals, QRS complexes (Q waves to the inferior leads), ST-T waves Rate: normal - EKG Data When compared to previous EKG there are: no significant change Interpretation: unchanged when compared t (12/31/16) - Radiology Data Radiology results: image reviewed interpreted by me: Chest x-ray does not show any acute process. There are no pleural effusions, obvious pneumonia and there is no pneumothorax. No significant cardiomegaly. - Medical Decision Making This patient presents with a 2 to 3-day history of some midsternal right-sided chest pain. Heart and lung sounds are normal to auscultation. On examination the patient has some reproducible tenderness to palpation of the chest wall without any crepitus or deformity. EKG did not have any morphology consistent with ST elevation myocardial infarction and appears unchanged from previous. Chest x-ray does not show any pneumonia, pleural effusions, pneumothorax, or any other acute process. The patient's labs shows some microcytic anemia with a hemoglobin of about 8 and some mild hypokalemia with potassium of 3.2. The patient was given some pot assium chloride supplementation, and was given a Toradol shot for her pain. The rest of the patient's labs are unremarkable including negative troponins x2. The patient was reevaluated multiple times over multiple hours and is feeling greatly improved. Her pain is down to 1 out of 10. She is low on the heart and ULISES score. She is low on the Wells score criteria and negative on the pulmonary embolism rule out criteria. For all these reasons the patient appears safe for discharge home at this time. She has been instructed to follow-up with primary care. Her contact information has been sent over to the [facility] [place], and someone from their office should be contacting her shortly for close outpatient follow-up as per our [facility] low risk chest pain protocol. Critical Care Time: No Critical care attestation.: If time is entered above; I have spent that time in minutes in the direct care of this critically ill patient, excluding procedure time. ED Disposition Clinical Impression: Hypokalemia Chest pain Qualifiers: Chest pain type: unspecified Qualified Code(s): R07.9 - Chest pain, unspecified Anemia Qualifiers: Anemia type: unspecified type Qualified Code(s): D64.9 - Anemia, unspecified Disposition: DC- TO HOME OR SELFCARE Is pt being admited?: No Condition: Stable Instructions: Hypokalemia, Nonspecific Chest Pain, Adult, Chest Pain (ED) Additional Instructions: Please follow-up with a primary care physician in the next few days. I am sending your contact information to the [facility], and someone from their office should be contacting you shortly for close outpatient follow-up. Just in case, I am giving you a referral for one of their mixing machine attendant, Dr. Floyd. Return to the emergency department with any worsening of your symptoms, new or concerning symptoms not addressed during this current emergency department visit, or with any acute distress. Referrals: CATALINA CISNEROS MD [Primary Care Provider] - 3-5 Days PARUL YAÑEZ MD [Staff Physician] - 3-5 Days [facility] [Provider Group] - 3-5 Days NEHAL FLOYD MD [Staff Physician] - 3-5 Days Time of Disposition: 23:22
[2020-04-27 20:16] LABS: Hematocrit 26.4 % (30.3-42.9); Mean Corpuscular HGB Conc 30 % (30-34); Platelet Count 321 K/mm3 (140-440); Red Blood Count 4.07 M/mm3 (3.65-5.03)
[2020-04-27 20:28] LABS: Mean Corpuscular Volume 65 fl (79-97)
[2020-04-27 20:37] LABS: Alanine Aminotransferase 10 units/L (7-56); Albumin 4.2 g/dL (3.9-5); BUN/Creatinine Ratio 10; Blood Urea Nitrogen 6 mg/dL (7-17); Calcium 9.1 mg/dL (8.4-10.2); Hemolysis Index 0
[2020-04-27] MEDS ORDERED: POTASSIUM CHLORIDE ER 20 MEQ TAB PO ONE (21:05)
[2020-04-27 21:12] LABS: Total Cells Counted 100
[2020-04-27 21:13] LABS: Anisocytosis Few; Hypochromasia 2+
[2020-04-27 21:14] LABS: Ovalocytes Rare; Platelet Estimate Consistent w Auto
--- NOTE | 2020-04-27 21:41 | XRay Report ---
CHEST 1 VIEW 04/27/2020 8:18 PM INDICATION / CLINICAL INFORMATION: CP. COMPARISON: 06/25/2017 FINDINGS: SUPPORT DEVICES: None. HEART / MEDIASTINUM: Stable. LUNGS / PLEURA: No significant pulmonary or pleural abnormality. No pneumothorax. ADDITIONAL FINDINGS: No significant additional findings. IMPRESSION: 1. No acute findings. No significant interval change since 06/25/2017. Signer Name: Reginaldo Diaz MD Signed: 04/27/2020 9:37 PM Workstation Name: [id number]
[2020-04-27] MEDS ORDERED: KETOROLAC 30 MG/1 ML INJ IM ONE (22:06)
[2020-04-27 23:30] VITALS: BP 121/81
== END 2020-04-27 23:35 | disposition home or self-care (01) ==
LOC: ED 18:46
DX: D64.9 Anemia, unspecified (principal); E87.6 Hypokalemia; R07.89 Other chest pain; Z98.890 Other specified postprocedural states; Z90.49 Acquired absence of other specified parts of digestive tract; Z79.899 Other long term (current) drug therapy
CPT/HCPCS: 36415; 71045; 80053; 84484; 85007; 85025; 93005; 96372; 99283; J1885